=== PATIENT | female | born 1955 | race African-American/Black ===

== ENCOUNTER 2020-07-06 17:15 | Inpatient (IN) | payer MEDICARE, MEDICAID ==
[2020-07-06 18:36] LABS: #Basophils 0.1 thou/uL (0.0-0.2); #Eosinphils 0.5 thou/uL (0.0-0.7); #Lymphocytes 2.3 thou/uL (1.20-3.40); #Monocytes 0.7 thou/uL (0.11-0.59); %Basophils 1.3 % (0.0-1.0); %Eosinophils 4.4 % (0.0-10.0); %Lymphocytes 21.7 % (21.0-51.0); %Monocytes 6.7 % (0.0-10.0); Hemoglobin 7.8 g/dL (12.0-16.0); Mean Corpuscular HGB CONC 32.9 g/dL (32.0-36.0); Mean Platelet Volume 8.7 fL (7.4-10.4); Platelet Count 279 thou/uL (130-400); RBC Distribution Width 16.5 % (11.5-14.5); Red Blood Cell (RBC) Count 2.98 mill/uL (4.20-5.40); White Blood Cell (WBC) Count 10.5 thou/uL (4.8-10.8)
[2020-07-06 19:06] LABS: ALT (SGPT) 29 U/L (8-55); AST (SGOT) 24 U/L (5-34); Albumin 3.1 g/dL (3.4-4.8); Alkaline Phosphatase 185 U/L (40-110); Anion Gap 14 mmol/L (10-20); BUN (Urea Nitrogen) 70 mg/dL (9.8-20.1); Bilirubin, Total 0.4 mg/dL (0.2-1.2); Calc. Creatinine Clearance 0 mL/min (70-130); Carbon Dioxide 22 mmol/L (23-31); Chloride 108 mmol/L (98-107); Globulin 5.5 g/dL (2.4-3.5); Glucose 81 mg/dL (80-115); Potassium 4.6 mmol/L (3.5-5.1); Protein, Total 8.6 g/dL (5.8-8.1); Sodium 139 mmol/L (136-145)
[2020-07-06] MEDS ORDERED: Vancomycin 1 GM/200 ML BAG ONE (20:40)
[2020-07-06] MEDS ORDERED: Cefepime 2 GM VIAL ONE (20:40)
[2020-07-06 20:46] LABS: Bacteria/HPF 4+ HPF (None Seen); Bilirubin Negative (Negative); Blood, Urine 1+ (Negative); Clarity Extra Turbid (Clear); Glucose, Urine (Dipstick) Normal (Negative); Ketone, Urine Negative (Negative); Leukocyte 500 Leu/uL (Negative); Nitrite Negative (Negative); Protein, Urine (Dipstick) 100 mg/dL (Neg-Trace); RBC/HPF 21-50 HPF (0-3); Specific Gravity, Urine 1.011 (1.002-1.036); Urobilinogen Normal mg/dL (Less than 2); WBC/HPF Greater than 50 HPF (0-3); pH, Urine 6.5 (5.0-9.0)
[2020-07-06] MEDS ORDERED: Ondansetron PF 4 MG/2 ML Vial IVP PRN (21:42)
[2020-07-06] MEDS ORDERED: Promethazine HCl 12.5 MG in Sodium Chloride 0.9% 50 ML IVPB PRN (21:42)
[2020-07-06] MEDS ORDERED: hydrALAZINE 20 MG/ML VIAL SLOW IVP PRN (21:42)
[2020-07-06] MEDS ORDERED: Guaifenesin DM 100-10/5 ML UDCUP PO PRN (21:42)
[2020-07-06] MEDS ORDERED: Acetaminophen 325 MG TAB PO PRN (21:42)
[2020-07-06] MEDS ORDERED: cloNIDine 0.1 MG TAB PO PRN (21:42)
[2020-07-06] MEDS ORDERED: Labetalol HCl 100 MG/20 ML VIAL SLOW IVP PRN (21:42)
[2020-07-06] MEDS ORDERED: Electrolyte Replacement Protocol 1 EACH FS PRN (21:45)
--- NOTE | 2020-07-06 21:48 | PDOC.HHP ---
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 Patient has home health nurse, who called and reported that wounds had grown to size of hand and are tunneling. Patient reports wound have been there since 2018 and [employer] is treating with silver solution and she thinks it has not helped. Wound have become malodorous, painful compared to baseline. She also has a leave in shah catheter, urine was cloudy and sent for UA which revealed UTI signs, was changed a week ago. In ED, vitals afebrile, hemodynamically stable, patient talkative and in no distress. Blood and urine cultures sent, patient given vancomycin and cefepime and to be admitted for further workup and care. Allergies/Adverse Reactions: Allergy/AdvReac Type Severity Reaction Status Date / Time No Known Allergies Allergy Verified 02/26/13 10:29 Home Medications: Medication Instructions Recorded Confirmed Type Diclofenac Sodium ER 100 mg PO DAILY 02/26/13 03/19/13 History Iron 325 mg PO DAILY 02/26/13 03/19/13 History Lasix 20 mg PO BID 02/26/13 03/19/13 History Potassium 10 meq PO DAILY 02/26/13 03/19/13 History Simvastatin 20 mg PO DAILY 02/26/13 03/19/13 History Fluconazole [Diflucan] 150 mg PO DAILY #0 tab 03/19/13 Rx HYDROcodone Bit/APAP 5/325 [[place]] 1 tab PO Q6H PRN #0 tab 03/19/13 Rx Lidocaine 2% [Xylocaine 2% Jelly] 1 applic TOP ASDIR PRN #0 tube 03/19/13 Rx Past History: PMH: HTN, 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 gastric sleve,R THIGH SKIN GRAFT TO R LOWER LEG, gallbladder removal. Family history: Notes: denies gall bladder/.stones in family. Social history: Patient denies alcohol use, Patient denies drug use, Patient has no smoking history. Hospitalist TOMÁS MOSLEY Constitutional: reports: weakness. denies: fever, chills, sweats, malaise, other Eyes: denies: pain, vision change, conjunctivae inflammation, eyelid inflammation, redness, other ENT: denies: ear pain, ear discharge, nose pain, nose discharge, nose congestion, mouth pain, mouth swelling, throat pain, throat swelling, other Respiratory: denies: cough, dry, shortness of breath, hemoptysis, SOB with excertion, pleuritic pain, sputum, wheezing, other Cardiovascular: denies: chest pain, palpitations, orthopnea, paroxysmal noc. dyspnea, edema, light headedness, other Gastrointestinal: denies: nausea, vomiting, abdominal pain, diarrhea, constipation, melena, hematochezia, other Genitourinary: denies: dysuria, frequency, incontinence, hematuria, retention, other Musculoskeletal: denies: neck pain, shoulder pain, arm pain, back pain, hand pain, leg pain, foot pain, other Skin: reports: rash, lesions, other (sacral ulcers). denies: cristian, bruising Neurological: denies: weakness, numbness, incoordination, change in speech, confusion, seizures, other All other systems reviewed; all pertinent +/- noted in HPI/Subj Hospitalist Exam Vitals: VITAL SIGNS Wed Jul 06, 2020 22:00 KASSIDY Shelton Klara BP: 126/65 MAP: 85 Pulse: 76 Resp: 15 Temp: 97.9 (Oral) Pain: 0 O2 sat: 99 on (Room Air) Time: 07/06/2020 22:00. General Appearance: NAD, awake alert Eye: PERRL, anicteric sclera ENT: normocephalic atraumatic, no oropharyngeal lesions, moist mucosa Neck: supple, symmetric, no JVD, no thyromegaly, no lymphadenopathy, no carotid bruit Heart: RRR, no murmur, no gallops, no rubs, normal peripheral pulses Respiratory: CTAB, no wheezes, no rales, no ronchi, normal chest expansion, no tachypnea, normal percussion Gastrointestinal: soft, non-tender, non-distended, normal bowel sounds, no palpable masses, no hepatomegaly, no splenomegaly, no bruit Extremities: no cyanosis, no clubbing, no edema Skin: normal turgor Skin - other findings: see below under labs section for description, will not fit Neurological: cranial nerve grossly intact, normal sensation to touch, no weakness, no focal deficits, no new deficit Musculoskeletal: normal tone, normal strength, no muscle wasting Psychiatric: normal affect, normal behavior, A&O x 3 Hospitalist Results Result Diagrams: 07/06/20 18:24 07/06/20 18:24 Lab results: Laboratory Last Values WBC 10.5 thou/uL (4.8-10.8) 07/06/20 18:24 RBC 2.98 mill/uL (4.20-5.40) L 07/06/20 18:24 Hgb 7.8 g/dL (12.0-16.0) L 07/06/20 18:24 Hct 23.6 % (36.0-47.0) L 07/06/20 18:24 MCV 79.0 fL (78.0-98.0) 07/06/20 18: MCH 26.0 pg (27.0-31.0) L 07/06/20 18: MCHC 32.9 g/dL (32.0-36.0) 07/06/20 18: RDW 16.5 % (11.5-14.5) H 07/06/20 18: Plt Count 279 thou/uL (130-400) 07/06/20 18:24 MPV 8.7 fL (7.4-10.4) 07/06/20 18: Neutrophils % 66.0 % (42.0-75.0) 07/06/20 18: Lymphocytes % 21.7 % (21.0-51.0) 07/06/20 18: Monocytes % 6.7 % (0.0-10.0) 07/06/20 18: Eosinophils % 4.4 % (0.0-10.0) 07/06/20 18:24 Basophils % 1.3 % (0.0-1.0) H 07/06/20 18:24 Neutrophils # 7.0 thou/uL (1.40-6.50) H 07/06/20 18:24 Lymphocytes # 2.3 thou/uL (1.20-3.40) 07/06/20 18:24 Monocytes # 0.7 thou/uL (0.11-0.59) H 07/06/20 18:24 Eosinophils # 0.5 thou/uL (0.0-0.7) 07/06/20 18:24 Basophils # 0.1 thou/uL (0.0-0.2) 07/06/20 18:24 Sodium 139 mmol/L (136-145) 07/06/20 18:24 Potassium 4.6 mmol/L (3.5-5.1) 07/06/20 18:24 Chloride 108 mmol/L (98-107) H 07/06/20 18:24 Carbon Dioxide 22 mmol/L (23-31) L 07/06/20 18:24 Anion Gap 14 mmol/L (10-20) 07/06/20 18:24 BUN 70 mg/dL (9.8-20.1) H 07/06/20 18:24 Creatinine 2.68 mg/dL (0.6-1.1) H 07/06/20 18:24 Estimated GFR (MDRD) 22 07/06/20 18:24 Glucose 81 mg/dL (80-115) 07/06/20 18:24 Lactic Acid 0.7 mmol/L (0.5-2.2) 07/06/20 18:24 Calcium 9.0 mg/dL (7.8-10.44) 07/06/20 18:24 Total Bilirubin 0.4 mg/dL (0.2-1.2) 07/06/20 18:24 AST 24 U/L (5-34) 07/06/20 18:24 ALT 29 U/L (8-55) 07/06/20 18:24 Alkaline Phosphatase 185 U/L (40-110) H 07/06/20 18:24 Serum Total Protein 8.6 g/dL (5.8-8.1) H 07/06/20 18:24 Albumin 3.1 g/dL (3.4-4.8) L 07/06/20 18:24 Globulin 5.5 g/dL (2.4-3.5) H 07/06/20 18:24 Albumin/Globulin Ratio 0.6 g/dL (1.2-2.2) L 07/06/20 18:24 Urine Color Yellow (Yellow) 07/06/20 20: Urine Clarity Extra Turbid (Clear) A 07/06/20 20: Urine pH 6.5 (5.0-9.0) 07/06/20 20: Ur Specific [place] 1.011 (1.002-1.036) 07/06/20 20: Urine Protein 100 mg/dL (Neg-Trace) A 07/06/20 20: Urine Glucose (UA) Normal mg/dL (Negative) 07/06/20 20: Urine Ketones Negative mg/dL (Negative) 07/06/20 20: Urine Blood 1+ (Negative) A 07/06/20: Urine Nitrite Negative (Negative) 07/06/20: Urine Bilirubin Negative (Negative) 07/06/20: Urine Urobilinogen Normal mg/dL (Less than 2) 07/06/20 20: Ur Leukocyte Esterase 500 [place]/uL (Negative) A 07/06/20: Urine RBC 21-50 HPF (0-3) A 07/06/20: Urine WBC Greater than 50 HPF (0-3) A 07/06/20: Ur Squamous Epith Cells 4-6 HPF (0-3) A 07/06/20: Urine Bacteria 4+ HPF (None Seen) A 07/06/20 20: Additional comment: SKIN EXAM Skin assessment findings include skin warm Skin dry Inspection findings include pressure ulcer to the sacrum Stage II length (cm) 4 width (cm) 2 without drainage Inspection findings include pressure ulcer to left buttocks Stage III length (cm) 9 width (cm) 11 draining clear fluid Inspection findings include pressure ulcer Stage II multiple dot like ulcers on left upper thigh posterior Notes: bilateral upper thigh/groin streak like skin break down approx. 4 cm in length. 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 # UTI # cellulitis and infected pressure ulcer Patient has home health nurse, who called and reported that wounds had grown to size of hand and are tunneling. Patient reports wound have been there since 2018 and company is treating with silver solution and she thinks it has not helped. Wound have become malodorous, painful compared to baseline.. suspect ulcer infection and possibly related to leaky shah, exchanged in ED, not obvi ously tunneling and no indication currently for surgical consultation but will await wound care service evaluation for further opinion. She also has a leave in shah catheter, urine was cloudy and sent for UA which revealed UTI signs, was changed a week ago. In ED, vitals afebrile, hemodynamically stable, patient talkative and in no distress. Blood and urine cultures sent, patient given vancomycin and cefepime and to be admitted for further workup and care. - shah changed a week ago and again in ED - start empiric vancomycin/zosyn - follow cultures - consult wound care nursing # HTN - start PRN medications, resume home meds as appropriate # anemia - no clinical bleeding, continue DVT ppx heparin and monitor CBC and monitor for bleeding # paraplegia - noted, PT/OT to ensure stable for returning home w/ HH DVT/GI ppx
[2020-07-06] MEDS ORDERED: Piperacillin/Tazobactam 3.375 GM in Sodium Chloride 0.9% 100 ML IVPB SCH (22:15)
[2020-07-07 01:03] VITALS: BMI 52.7
[2020-07-07] MEDS: Sodium Chloride 0.9% 1,000 ML IV SCH ×2 (01:23→12:14)
[2020-07-07] MEDS ORDERED: Vancomycin 1 GM in Premix Bag 1 BAG IVPB SCH (03:00)
[2020-07-07] MEDS: Piperacillin/Tazobactam 3.375 GM in Sodium Chloride 0.9% 100 ML IVPB SCH ×3 (05:37→17:26)
[2020-07-07 06:11] LABS: #Basophils 0.1 thou/uL (0.0-0.2); #Eosinphils 0.4 thou/uL (0.0-0.7); #Lymphocytes 1.9 thou/uL (1.20-3.40); #Monocytes 0.7 thou/uL (0.11-0.59); #Neutrophils 6.4 thou/uL (1.40-6.50); %Eosinophils 4.3 % (0.0-10.0); %Monocytes 7.7 % (0.0-10.0); Mean Corpuscular HGB CONC 31.4 g/dL (32.0-36.0); Mean Corpuscular Hemoglobin 24.9 pg (27.0-31.0); Mean Corpuscular Volume 79.3 fL (78.0-98.0); Mean Platelet Volume 8.7 fL (7.4-10.4); Platelet Count 260 thou/uL (130-400); RBC Distribution Width 16.4 % (11.5-14.5); Red Blood Cell (RBC) Count 2.82 mill/uL (4.20-5.40); White Blood Cell (WBC) Count 9.6 thou/uL (4.8-10.8)
[2020-07-07 06:30] LABS: Anion Gap 14 mmol/L (10-20); BUN (Urea Nitrogen) 62 mg/dL (9.8-20.1); Calc. Creatinine Clearance 56 mL/min (70-130); Calcium 8.6 mg/dL (7.8-10.44); Carbon Dioxide 19 mmol/L (23-31); Chloride 113 mmol/L (98-107); Glucose 86 mg/dL (80-115); Magnesium 2.2 mg/dL (1.6-2.6); Phosphorus 4.4 mg/dL (2.3-4.7); Potassium 4.6 mmol/L (3.5-5.1); Sodium 141 mmol/L (136-145)
[2020-07-07] MEDS ORDERED: Diclofenac Sodium 50 MG DR TAB PO SCH ×2 (09:00→21:00)
[2020-07-07] MEDS ORDERED: FLU VACC QS2020-21(6MOS UP)/PF 60 MCG/0.5 ML SYRINGE IM ONE (09:00)
[2020-07-07] MEDS: Famotidine 20 MG TAB PO SCH ×2 (09:37→20:33)
[2020-07-07] MEDS: Fluconazole 100 MG TAB PO SCH (09:38)
[2020-07-07] MEDS: Heparin 5,000 UNITS/ML VIAL SC SCH ×2 (09:39→20:41)
[2020-07-07] MEDS: Polyethylene Glycol 3350 17 GM Packet PO SCH (09:40)
[2020-07-07] MEDS: HYDROcodone/Acetaminophen 5/325 mg Tablet PO PRN ×3 (09:43→21:50)
--- NOTE | 2020-07-07 12:26 | PDOC.HOSPP ---
- Subjective Encounter Date: 07/07/20 Encounter Time: 11:00 Subjective: Mrs. Moreno was seen and reports that she was not able to sleep due to her ulcers. She reports strong appetite with regular bowel movements and urination. She has a PMHx of hypertension, cholecystectomy, gastric sleeve, and T10-T12 paraplegia. She denies vomiting, chest pain, SOB, headache. She is positive for nausea, upper respiratory congestion with clear mucus, and noticeable neuropathy upon Left LE palpation. She also states that she stopped taking daily iron pills in February 2020 which may impact her hemoglobin. - Objective Vital Signs & Weight: Vital Signs (12 hours) Temp Pulse Resp BP Pulse Ox 07/07/20 08:14 97.9 F 66 18 118/67 97 07/07/20 08:00 97 07/07/20 04:00 97.7 F 82 20 137/83 98 07/07/20 01:56 96 Weight Weight 327 lb I&O: 07/06/20 07/07/20 07/08/20 06:59 06:59 06:59 Intake Total 600 240 Output Total 900 Balance -300 240 Result Diagrams: 07/07/20 05:40 07/07/20 05:40 Hospitalist ROS - Review of Systems Eyes: denies: conjunctivae inflammation, eyelid inflammation, redness Respiratory: reports: cough, sputum. denies: shortness of breath, hemoptysis Cardiovascular: denies: chest pain Gastrointestinal: reports: nausea. denies: vomiting, abdominal pain, diarrhea, constipation, hematochezia Genitourinary: reports: dysuria - Medication Medications: Active Medications Generic Name Dose Route Start Last Admin Trade Name Derrickq PRN Reason Stop Dose Admin Hydrocodone Bitart/Acetaminophen 1 tab 07/06/20 21:44 07/07/20 09:43 Hydrocodone/Acetaminophen 5/325 Mg Tablet PO 1 tab Q6H PRN Administration Moderate to Severe Pain (6-10) Diclofenac Sodium 100 mg 07/07/20 09:00 07/07/20 09:37 Diclofenac Sodium [address] Tab PO 100 mg DAILY KAREN Administration Famotidine 20 mg 07/07/20 09:00 07/07/20 09:37 Famotidine 20 Mg Tab PO 20 mg BID KAREN Administration Fluconazole 150 mg 07/07/20 09:00 07/07/20 09:38 Fluconazole 100 Mg Tab PO 150 mg DAILY KAREN Administration Heparin Sodium (Porcine) 5,000 units 07/07/20 09:00 07/07/20 09:39 Heparin 5,000 Units/Ml Vial SC 5,000 units BID KAREN Administration Sodium Chloride 1,000 mls @ 75 mls/hr 07/06/20 21:45 07/07/20 12:14 Normal Saline 0.9% IV 1,000 mls .[id number] KAREN Administration Piperacillin Sod/Tazobactam 100 mls @ 200 mls/hr 07/07/20 06:00 07/07/20 12:12 Sod 3.375 gm/ Sodium Chloride IVPB 100 mls Q6HR KAREN Administration Polyethylene Glycol 17 gm 07/07/20 09:00 07/07/20 09:40 Polyethylene Glycol 3350 17 Gm Packet PO 17 gm DAILY KAREN Administration Hospitalist Exam Vitals: Vital Signs (12 hours) Temp Pulse Resp BP Pulse Ox 07/07/20 08:14 97.9 F 66 18 118/67 97 07/07/20 08:00 97 07/07/20 04:00 97.7 F 82 20 137/83 98 07/07/20 01:56 96 Weight Weight 327 lb General Appearance: NAD, awake alert Eye: PERRL, anicteric sclera ENT: normocephalic atraumatic Neck: supple Heart: RRR, no murmur Respiratory: CTAB Gastrointestinal: soft, non-tender, non-distended, normal bowel sounds Extremities: 1+ LE edema, 2+ LE edema Neurological: cranial nerve grossly intact, no new deficit Neurological - other findings: peripheral neuropathy in left lower extremety upon palpation Musculoskeletal: generalized weakness Psychiatric: normal affect, normal behavior, A&O x 3 Hosp A/P - Plan Hospitalist H&P A/P Plan: Patient is a 64 year old female with PMH HTN, 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 Cellulitis with decubitus ulcers----present on admission # UTI Complicated urinary tract infection Chronic indwelling Shah cath UTI secondary to chronic indwelling Shah catheter # cellulitis and infected pressure ulcer -Colonization cannot be ruled out given the chronic use of the Shah Patient has home health nurse, who called and reported that wounds had grown to size of hand and are tunneling. Patient reports wound have been there since 2018 a --Wound have become malodorous, painful compared to baseline.. -- suspect ulcer infection and possibly related to leaky shah, exchanged in ED, not obviously tunneling and no indication currently for surgical consultation --await wound care service evaluation for further opinion. -Shah change a week ago. - start empiric vancomycin/zosyn - follow cultures - consulted wound care nursing # HTN - start PRN medications, resume home meds as appropriate #Chronic normocytic anemia - no clinical bleeding, continue DVT ppx heparin and monitor CBC and monitor for bleeding -During the last February she stopped her iron supplement. -Since the hemoglobin is at 7 will transfuse 1 unit packed RBCs # paraplegia - noted, PT/OT to ensure stable for returning home w/ HH Acute kidney injury and her last baseline creatinine is 1.48 in May 2020 -IV fluid and repeat the panel if not resolving then will order renal ultrasound. Chronic pain Patient demands she needs to get her Voltaren and once a day is not helping she likes to resume her home regimen. I am going to hold that medicine and give her [place] as needed until her kidney function improves. Covid positive -She is asymptomatic, however given her comorbidities we will give her empiric treatment Care discussed with the student and agree with the above plan.
[2020-07-07 12:36] LABS: SARS-CoV-2 PCR by NAA DETECTED (NotDetected)
[2020-07-07] MEDS ORDERED: Sodium Chloride 0.9% 1,000 ML IV SCH (15:01)
[2020-07-07] MEDS ORDERED: Melatonin 3 MG TAB PO PRN (15:04)
[2020-07-07] MEDS: Baclofen 10 MG TAB PO PRN ×2 (15:44→21:50)
[2020-07-07] MEDS ORDERED: Dexamethasone 4 mg/ml Vial SLOW IVP SCH (16:00)
[2020-07-07] MEDS ORDERED: Zinc Sulfate 220 MG CAP PO SCH (16:00)
[2020-07-07] MEDS ORDERED: Simvastatin 20 MG TAB PO SCH (21:00)
[2020-07-07] MEDS ORDERED: Vancomycin 1.5 GRAM/300 ML BAG 1.5 GM in Premix Bag 1 BAG IVPB SCH (22:00)
[2020-07-08] MEDS: Vancomycin 1.5 GRAM/300 ML BAG 1.5 GM in Premix Bag 1 BAG IVPB SCH ×2 (00:15→23:33)
[2020-07-08] MEDS: Piperacillin/Tazobactam 3.375 GM in Sodium Chloride 0.9% 100 ML IVPB SCH ×5 (01:57→20:10)
[2020-07-08] MEDS: Baclofen 10 MG TAB PO PRN ×3 (04:14→16:35)
[2020-07-08 07:12] LABS: #Lymphocytes 1.7 thou/uL (1.20-3.40); #Monocytes 0.2 thou/uL (0.11-0.59); #Neutrophils 7.5 thou/uL (1.40-6.50); %Basophils 0.4 % (0.0-1.0); %Eosinophils 0.3 % (0.0-10.0); %Lymphocytes 17.9 % (21.0-51.0); %Monocytes 2.3 % (0.0-10.0); %Neutrophils 79.1 % (42.0-75.0); Hemoglobin 8.4 g/dL (12.0-16.0); Mean Corpuscular HGB CONC 32.1 g/dL (32.0-36.0); Mean Corpuscular Hemoglobin 26.1 pg (27.0-31.0); Mean Corpuscular Volume 81.4 fL (78.0-98.0); Mean Platelet Volume 8.7 fL (7.4-10.4); Platelet Count 266 thou/uL (130-400); RBC Distribution Width 16.7 % (11.5-14.5); Red Blood Cell (RBC) Count 3.22 mill/uL (4.20-5.40); White Blood Cell (WBC) Count 9.4 thou/uL (4.8-10.8)
[2020-07-08 07:31] LABS: Anion Gap 13 mmol/L (10-20); BUN (Urea Nitrogen) 43 mg/dL (9.8-20.1); Calc. Creatinine Clearance 62 mL/min (70-130); Calcium 8.7 mg/dL (7.8-10.44); Carbon Dioxide 18 mmol/L (23-31); Chloride 110 mmol/L (98-107); Glucose 198 mg/dL (80-115); Magnesium 2.1 mg/dL (1.6-2.6); Potassium 5.1 mmol/L (3.5-5.1); Sodium 136 mmol/L (136-145)
[2020-07-08] MEDS: Torsemide 20 MG TAB PO SCH (09:57)
[2020-07-08] MEDS: Fluconazole 100 MG TAB PO SCH (09:57)
[2020-07-08] MEDS: Potassium Chloride 10 MEQ TAB PO SCH (09:58)
[2020-07-08] MEDS: Calcium Carbonate 600 MG + Vit D TAB PO SCH (09:58)
[2020-07-08] MEDS: Ascorbic Acid 500 mg Chewable Tablet PO SCH (09:58)
[2020-07-08] MEDS: Heparin 5,000 UNITS/ML VIAL SC SCH ×2 (09:58→20:09)
[2020-07-08] MEDS: Zinc Sulfate 220 MG CAP PO SCH (09:58)
[2020-07-08] MEDS: HYDROcodone/Acetaminophen 5/325 mg Tablet PO PRN ×2 (09:58→16:34)
[2020-07-08] MEDS: Famotidine 20 MG TAB PO SCH ×2 (09:58→20:09)
[2020-07-08] MEDS: Polyethylene Glycol 3350 17 GM Packet PO SCH (09:59)
[2020-07-08] MEDS: Dexamethasone 4 mg/ml Vial SLOW IVP SCH (09:59)
--- NOTE | 2020-07-08 14:38 | PDOC.HOSPP ---
- Subjective Encounter Date: 07/08/20 Encounter Time: 11:50 Subjective: Patient seen this morning she does not have any acute complaints. [place]; she does not have currently any urologist following. Urine culture mixed cholo. - Objective Vital Signs & Weight: Vital Signs (12 hours) Temp Pulse Resp BP Pulse Ox 07/08/20 08:00 98 07/08/20 07:58 98.2 F 72 20 131/60 98 07/08/20 04:43 98.4 F 76 20 146/83 H Weight Admit Weight 327 lb Weight 327 lb I&O: 07/07/20 07/08/20 07/09/20 06:59 06:59 06:59 Intake Total 600 1310 120 Output Total 900 2250 Balance -300 -940 120 Result Diagrams: 07/08/20 06:43 07/08/20 06:43 Hospitalist ROS - Medication Medications: Active Medications Generic Name Dose Route Start Last Admin Trade Name Freq PRN Reason Stop Dose Admin Hydrocodone Bitart/Acetaminophen 1 tab 07/06/20 21:44 07/08/20 09:58 Hydrocodone/Acetaminophen 5/325 Mg Tablet PO 1 tab Q6H PRN Administration Moderate to Severe Pain (6-10) Ascorbic Acid 1,000 mg 07/08/20 09:00 07/08/20 09:58 Ascorbic Acid 500 Mg Chewable Tablet PO 1,000 mg DAILY KAREN Administration Baclofen 20 mg 07/07/20 15:33 07/08/20 09:58 Baclofen 10 Mg Tab PO 20 mg Q6H PRN Administration muscle Calcium/Vitamin D 1 tab 07/08/20 09:00 07/08/20 09:58 Calcium Carbonate 600 Mg + Vit D Tab PO 1 tab DAILY KAREN Administration Dexamethasone 6 mg 07/08/20 09:00 07/08/20 09:59 Dexamethasone 4 Mg/Ml Vial SLOW IVP 6 mg DAILY KAREN Administration Famotidine 20 mg 07/07/20 09:00 07/08/20 09:58 Famotidine 20 Mg Tab PO 20 mg BID KAREN Administration Fluconazole 150 mg 07/07/20 09:00 07/08/20 09:57 Fluconazole 100 Mg Tab PO 150 mg DAILY KAREN Administration Heparin Sodium (Porcine) 5,000 units 07/07/20 09:00 07/08/20 09:58 Heparin 5,000 Units/Ml Vial SC 5,000 units BID KAREN Administration Vancomycin HCl 1.5 gm/ Device 300 mls @ 200 mls/hr 07/07/20 23:59 07/08/20 00:15 IVPB 07/14/20 00:30 300 mls 2359 KAREN Administration Piperacillin Sod/Tazobactam 100 mls @ 200 mls/hr 07/08/20 02:00 07/08/20 10:00 Sod 3.375 gm/ Sodium Chloride IVPB 100 mls 0200,0800,1400,2000 KAREN Administration Polyethylene Glycol 17 gm 07/07/20 09:00 07/08/20 09:59 Polyethylene Glycol 3350 17 Gm Packet PO 17 gm DAILY KAREN Administration Potassium Chloride 10 meq 07/08/20 09:00 07/08/20 09:58 Potassium Chloride 10 Meq Tab PO 10 meq Q2DAYS KAREN Administration Simvastatin 20 mg 07/07/20 21:00 07/07/20 20:33 Simvastatin 20 Mg Tab PO 20 mg HS KAREN Administration Torsemide 20 mg 07/08/20 09:00 07/08/20 09:57 Torsemide 20 Mg Tab PO 20 mg Q2DAYS KAREN Administration Zinc Sulfate 220 mg 07/08/20 09:00 07/08/20 09:58 Zinc Sulfate 220 Mg Cap PO 220 mg DAILY KAREN Administration Hospitalist Exam Vitals: Vital Signs (12 hours) Temp Pulse Resp BP Pulse Ox 07/08/20 08:00 98 07/08/20 07:58 98.2 F 72 20 131/60 98 07/08/20 04:43 98.4 F 76 20 146/83 H Weight Admit Weight 327 lb Weight 327 lb General Appearance: NAD, awake alert Eye: PERRL ENT: normocephalic atraumatic Neck: supple Heart: RRR, normal peripheral pulses Respiratory: CTAB, normal chest expansion Gastrointestinal: soft, normal bowel sounds Neurological: cranial nerve grossly intact, no focal deficits Psychiatric: normal affect, normal behavior, A&O x 3 Hosp A/P - Plan Hospitalist H&P A/P Plan: Patient is a 64 year old female with PMH HTN, 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 Cellulitis with decubitus ulcers----present on admission # UTI Complicated urinary tract infection Chronic indwelling Shah cath UTI secondary to chronic indwelling Shah catheter # cellulitis and infected pressure ulcer -Colonization cannot be ruled out given the chronic use of the Shah Patient has home health nurse, who called and reported that wounds had grown to size of hand and are tunneling. Patient reports wound have been there since 2018 a --Wound have become malodorous, painful compared to baseline.. Sacral wound present on admission -- suspect ulcer infection and possibly related to leaky shah, exchanged in ED, not obviously tunneling and no indication currently for surgical consultation --await wound care service evaluation for further opinion. -Shah change a week ago. - start empiric vancomycin/zosyn - follow cultures - consulted wound care nursing # HTN - start PRN medications, resume home meds as appropriate #Chronic normocytic anemia - no clinical bleeding, continue DVT ppx heparin and monitor CBC and monitor for bleeding -During the last February she stopped her iron supplement. -Since the hemoglobin is at 7 will transfuse 1 unit packed RBCs--------------> latest hemoglobin 8.4 #T10 12 paraplegia - noted, PT/OT to ensure stable for returning home w/ HH Acute kidney injury and her last baseline creatinine is 1.48 in May 2020 -Slight improvement in the creatinine level. We will get ultrasound Chronic pain Patient demands she needs to get her Voltaren and once a day is not helping she likes to resume her home regimen. I am going to hold that medicine and give her [place] as needed until her kidney function improves. Covid positive -She is asymptomatic, however given her comorbidities we will give her empiric treatment Follow-up on renal ultrasound Chronic indwelling Shah Possible neurogenic bladder secondary to paraplegia -Home health provider changes her Shah once a month. -Now recently when she is admitted in the ER they have changed the Shah as it was leaking. I do not think emergently she needs any urology inpatient visit -May need to connect with the urologist for outpatient clinic follow-up intermittently as she is new to the neighborhood.
--- NOTE | 2020-07-08 19:10 | ULT ---
Exam: Bilateral renal ultrasound HISTORY: Acute kidney insufficiency COMPARISON: None FINDINGS: Right kidney: Normal cortical echotexture. No hydronephrosis. There is right renal cortical thinning. There is a calcification within the pelvis. Right kidney measurements: 9.2 x 2.7 x 4 point cm. Left kidney: Normal cortical echotexture. No hydronephrosis. There is left renal cortical thinning. Left kidney measurements 10.5 x 6.1 x 5.0 cm. Urinary bladder: Not visualized IMPRESSION: 1. No hydronephrosis 2. Nonobstructing calculus in the right kidney 3. Severe bilateral renal cortical thinning.
[2020-07-08] MEDS: Simvastatin 10 MG TAB PO SCH (20:12)
[2020-07-08 23:42] LABS: Vancomycin, Trough 16.7 ug/mL
[2020-07-09] MEDS: HYDROcodone/Acetaminophen 5/325 mg Tablet PO PRN ×3 (01:15→17:27)
[2020-07-09] MEDS: Baclofen 10 MG TAB PO PRN ×3 (01:17→17:27)
[2020-07-09] MEDS: Piperacillin/Tazobactam 3.375 GM in Sodium Chloride 0.9% 100 ML IVPB SCH ×3 (01:50→15:18)
[2020-07-09 06:43] LABS: #Basophils 0.1 thou/uL (0.0-0.2); #Lymphocytes 2.3 thou/uL (1.20-3.40); #Neutrophils 8.8 thou/uL (1.40-6.50); %Basophils 0.6 % (0.0-1.0); %Eosinophils 0.1 % (0.0-10.0); %Lymphocytes 18.8 % (21.0-51.0); %Monocytes 8.2 % (0.0-10.0); %Neutrophils 72.3 % (42.0-75.0); Hemoglobin 8.3 g/dL (12.0-16.0); Mean Corpuscular HGB CONC 32.4 g/dL (32.0-36.0); Mean Corpuscular Hemoglobin 25.7 pg (27.0-31.0); Mean Corpuscular Volume 79.3 fL (78.0-98.0); Mean Platelet Volume 8.8 fL (7.4-10.4); Platelet Count 330 thou/uL (130-400); RBC Distribution Width 16.8 % (11.5-14.5); Red Blood Cell (RBC) Count 3.22 mill/uL (4.20-5.40); White Blood Cell (WBC) Count 12.2 thou/uL (4.8-10.8)
[2020-07-09 07:11] LABS: Anion Gap 17 mmol/L (10-20); BUN (Urea Nitrogen) 35 mg/dL (9.8-20.1); Calc. Creatinine Clearance 71 mL/min (70-130); Calcium 8.9 mg/dL (7.8-10.44); Carbon Dioxide 16 mmol/L (23-31); Chloride 112 mmol/L (98-107); Glucose 101 mg/dL (80-115); Potassium 4.9 mmol/L (3.5-5.1); Sodium 140 mmol/L (136-145)
[2020-07-09] MEDS ORDERED: Magnesium 2 GM/50 ML 2 GM in Premix Bag 1 BAG IVPB SCH (08:15)
[2020-07-09] MEDS: Polyethylene Glycol 3350 17 GM Packet PO SCH (09:47)
[2020-07-09] MEDS: Dexamethasone 4 mg/ml Vial SLOW IVP SCH (09:47)
[2020-07-09] MEDS: Calcium Carbonate 600 MG + Vit D TAB PO SCH (09:47)
[2020-07-09] MEDS: Heparin 5,000 UNITS/ML VIAL SC SCH ×2 (09:48→20:48)
[2020-07-09] MEDS: Ascorbic Acid 500 mg Chewable Tablet PO SCH (09:49)
[2020-07-09] MEDS: Zinc Sulfate 220 MG CAP PO SCH (09:50)
[2020-07-09] MEDS: Famotidine 20 MG TAB PO SCH ×2 (09:50→20:48)
[2020-07-09] MEDS: Fluconazole 100 MG TAB PO SCH (09:50)
--- NOTE | 2020-07-09 18:52 | PDOC.HOSPP ---
- Subjective Encounter Date: 07/09/20 Encounter Time: 16:00 Subjective: The patient states she has been paraplegic since 2017, was told reason was a mystery and it was possibly from transverse myelitis UTI - patient states she had shah placed purely to keep her wounds dry, but can urinate on her own. She reports that she always get confused, weak and symptoms improve with antibiotics and then reoccur when antibiotics are stopped. Explained that urine culture was normal and she was surprised. She complains of shah leaking, states that the tube was up-sized in the ER, but her shah is still leaking and she would like to have it removed and have a pure-wick placed instead. SHe does note have a urologist Sacral ulcers - patient states that silver ointment was not helping with wound care at home. No significant discharge noted by the nurse today. COVID - patient denies cough or SOB - Objective Vital Signs & Weight: Vital Signs (12 hours) Pulse Ox 07/09/20 08:00 97 Weight Admit Weight 327 lb Weight 327 lb I&O: 07/08/20 07/09/20 07/10/20 06:59 06:59 06:59 Intake Total 1310 600 480 Output Total 2250 1000 Balance -940 -400 480 Result Diagrams: 07/09/20 06:00 07/09/20 06:00 Hospitalist ROS - Review of Systems Constitutional: denies: fever, chills - Medication Medications: Active Medications Generic Name Dose Route Start Last Admin Trade Name Freq PRN Reason Stop Dose Admin Hydrocodone Bitart/Acetaminophen 1 tab 07/06/20 21:44 07/09/20 17:27 Hydrocodone/Acetaminophen 5/325 Mg Tablet PO 1 tab Q6H PRN Administration Moderate to Severe Pain (6-10) Ascorbic Acid 1,000 mg 07/08/20 09:00 07/09/20 09:49 Ascorbic Acid 500 Mg Chewable Tablet PO 1,000 mg DAILY KAREN Administration Baclofen 20 mg 07/07/20 15:33 07/09/20 17:27 Baclofen 10 Mg Tab PO 20 mg Q6H PRN Administration muscle Calcium/Vitamin D 1 tab 07/08/20 09:00 07/09/20 09:47 Calcium Carbonate 600 Mg + Vit D Tab PO 1 tab DAILY KAREN Administration Famotidine 20 mg 07/07/20 09:00 07/09/20 09:50 Famotidine 20 Mg Tab PO 20 mg BID KAREN Administration Fluconazole 150 mg 07/07/20 09:00 07/09/20 09:50 Fluconazole 100 Mg Tab PO 150 mg DAILY KAREN Administration Heparin Sodium (Porcine) 5,000 units 07/07/20 09:00 07/09/20 09:48 Heparin 5,000 Units/Ml Vial SC 5,000 units BID KAREN Administration Vancomycin HCl 1.5 gm/ Device 300 mls @ 200 mls/hr 07/07/20 23:59 07/08/20 23:33 IVPB 07/14/20 00:30 300 mls 2359 KAREN Administration Piperacillin Sod/Tazobactam 100 mls @ 200 mls/hr 07/08/20 02:00 07/09/20 15:18 Sod 3.375 gm/ Sodium Chloride IVPB 100 mls 0200,0800,1400,2000 KAREN Administration Polyethylene Glycol 17 gm 07/07/20 09:00 07/09/20 09:47 Polyethylene Glycol 3350 17 Gm Packet PO 17 gm DAILY KAREN Administration Potassium Chloride 10 meq 07/08/20 09:00 07/08/20 09:58 Potassium Chloride 10 Meq Tab PO 10 meq Q2DAYS KAREN Administration Simvastatin 20 mg 07/08/20 21:00 07/08/20 20:12 Simvastatin 10 Mg Tab PO 20 mg HS KAREN Administration Sodium Chloride 10 ml 07/09/20 09:00 07/09/20 09:51 Flush - Normal Saline 10 Ml Syringe IVF 10 ml Q12HR KAREN Administration Torsemide 20 mg 07/08/20 09:00 07/08/20 09:57 Torsemide 20 Mg Tab PO 20 mg Q2DAYS KAREN Administration Zinc Sulfate 220 mg 07/08/20 09:00 07/09/20 09:50 Zinc Sulfate 220 Mg Cap PO 220 mg DAILY KAREN Administration Hospitalist Exam Vitals: Vital Signs (12 hours) Pulse Ox 07/09/20 08:00 97 Weight Admit Weight 327 lb Weight 327 lb General Appearance: NAD, awake alert Eye: PERRL, anicteric sclera ENT: normocephalic atraumatic, no oropharyngeal lesions Neck: no JVD Heart: RRR, no murmur, no gallops, no rubs Respiratory: CTAB, no wheezes, no rales, no ronchi Gastrointestinal: soft, non-tender, non-distended, normal bowel sounds, no pa lpable masses Gastrointestinal - other findings: chronic shah catheter Extremities: no cyanosis, no clubbing, no edema Skin: normal turgor, no lesions, no rashes Hosp A/P - Plan Renal US: severe bilateral renal cortical thinning This is a 64 year old female who came to the ER due to increasing pain from her sacral ulcer Sacral ulcers - wound culture was done today. Did not look infected on arrival . Discontinue f luconazole Chronic shah catheter - urine culture showed > 3 organisms. Patient wants shah removed, so will d/c. Switch to purewick. SHe would like a purewick at home - will discontinue vanc and meropenem since no signs of infection DAPHNIE - improving - creatinine was 1.92. Diclofenac and torsemide on hold. Renal US showed severe bilateral renal cortical thinning, but no hydronephrosis History of paraplegia - chronic, declines placement Dispo: monitor improvement off antibiotics and creatinine
[2020-07-09] MEDS: Simvastatin 10 MG TAB PO SCH (20:49)
[2020-07-10] MEDS: Baclofen 10 MG TAB PO PRN ×3 (00:03→12:41)
[2020-07-10] MEDS: HYDROcodone/Acetaminophen 5/325 mg Tablet PO PRN ×3 (00:04→16:21)
[2020-07-10 07:48] LABS: Hemoglobin 9.2 g/dL (12.0-16.0); Mean Corpuscular HGB CONC 31.6 g/dL (32.0-36.0); Mean Corpuscular Hemoglobin 25.9 pg (27.0-31.0); Mean Corpuscular Volume 82.1 fL (78.0-98.0); Mean Platelet Volume 8.5 fL (7.4-10.4); Platelet Count 324 thou/uL (130-400); RBC Distribution Width 17.7 % (11.5-14.5); Red Blood Cell (RBC) Count 3.55 mill/uL (4.20-5.40); White Blood Cell (WBC) Count 10.9 thou/uL (4.8-10.8)
[2020-07-10 07:54] LABS: Anion Gap 14 mmol/L (10-20); BUN (Urea Nitrogen) 30 mg/dL (9.8-20.1); Calc. Creatinine Clearance 75 mL/min (70-130); Carbon Dioxide 19 mmol/L (23-31); Chloride 111 mmol/L (98-107); Glucose 105 mg/dL (80-115); Potassium 4.9 mmol/L (3.5-5.1); Sodium 139 mmol/L (136-145)
[2020-07-10] MEDS: Ascorbic Acid 500 mg Chewable Tablet PO SCH (09:07)
[2020-07-10] MEDS: Famotidine 20 MG TAB PO SCH (09:07)
[2020-07-10] MEDS: Calcium Carbonate 600 MG + Vit D TAB PO SCH (09:07)
[2020-07-10] MEDS: Potassium Chloride 10 MEQ TAB PO SCH (09:07)
[2020-07-10] MEDS: Zinc Sulfate 220 MG CAP PO SCH (09:07)
[2020-07-10] MEDS: Heparin 5,000 UNITS/ML VIAL SC SCH (09:08)
[2020-07-10] MEDS: Torsemide 20 MG TAB PO SCH (09:08)
[2020-07-10] MEDS: Polyethylene Glycol 3350 17 GM Packet PO SCH (09:08)
[2020-07-10 16:42] VITALS: BP 161/79; TEMP 98.2
--- NOTE | 2020-07-10 18:56 | PDOC.DS.DS ---
Provider Date of Admission: 07/06/20 21:51 Date of Discharge: 07/10/20 Admitting Provider: Swetha Ramos MD Primary Care Physician: Jordan Matos MD Course Hospital Course: Discharge Diagnoses: 1. Acute hypoxic respiratory failure secondary to COVID 2. Sacral ulcers 3. Acute kidney Injury 4. History of paraplegia Brief HPI: This 64-year-old female with past medical history of lower extremity paraplegia from possible transverse myelitis who presented to the emergency room with increasing weakness, diarrhea, nausea. She also complained of pacing pain in her sacral ulcers because she was not able to get adequate wound care. Covid test was positive. White blood cell count was normal. Creatinine was 2.68. UA showed turbid urine, 500 leukocyte esterase, greater than 50 WBC. She did have some hypoxia with oxygen saturation in the 80's. She was given dexamethasone and admitted for further workup. Hospital Course: Acute hypoxic respiratory failure from COVID: The patient was given IV dexamethasone until 07/09. She was weaned off oxygen so this was discontinued. The patient denied shortness of breath or cough. She reported positive COVID test one month ago and quarantined for ten days, so she was advised that she was likely not contagious and would continue to test postiive. Malaise/weakness History of chronic shah catheter and recurrent UTI's: the patient was initially treated for a UTI with IV vancoycin and zosyn from 07/07 to 07/09. Urine culture grew a contaminant so antibiotics were discontinued. The patient had improvement in her WBC from 12 to 10 after stopping antibiotics so these were not restarted. She did have shah placed one month ago in order to prevent her sacral ulcers from getting wet, however she requested that it be removed due to excessive amounts of leaking. Shah was removed 07/09. On 07/10, she requested to have it placed back in since she realized she could not get a Purewick on discharge, even though she was aware of this the day prior. Shah was replaced on the day of discharge. Consider outpatient urology follow up. She did ask about antibiotic prophylaxis for UTI. She states she is allergic to nitrofurantoin. Dr. Ureña suggested cipro or bactrim, but she states those stopped working for her as well, so she decided to f/u with her PCP and ask about this. Acute kidney Injury: the patient presented with a creatinine of 2.68. Her di clofenac was held. Renal US showed bilateral renal cortical thinning. Her creatinine improved to 1.8 at the time of discharge. She should get a repeat BMP in a week. Sacral ulcers: the patient was seen by wound care in consultation. She did not have any signs of infection in this area. She was given instructions by wound care on discharge and advised to f/u with wound care as an outpatient. Does have home health at home. Pertinent Studies: Renal US: no hydronephrosis. Nonobstructing calculus in the right kidney. Severe bilateral renal cortical thinning Resuscitation Status: 07/06/20 21:40 Resuscitation Status Routine Resuscitation Status: FULL: Full Resuscitation Lab Results: 07/10/20 07:27 07/10/20 07:27 Abnormal Lab Results - Last 48 hrs 07/09/20 06:00: Chloride 112 H, Carbon Dioxide 16 L, BUN 35 H, Creatinine 1.92 H 07/09/20 06:00: WBC 12.2 H, RBC 3.22 L, Hgb 8.3 L, Hct 25.6 L, MCH 25.7 L, RDW 16.8 H, Lymphocytes % 18.8 L, Neutrophils # 8.8 H, Monocytes # 1.0 H 07/10/20 07:27: Chloride 111 H, Carbon Dioxide 19 L, BUN 30 H, Creatinine 1.81 H 07/10/20 07:27: WBC 10.9 H, RBC 3.55 L, Hgb 9.2 L, Hct 29.2 L, MCH 25.9 L, MCHC 31.6 L, RDW 17.7 H Microbiology - Entire Visit 07/06/20 18:24 Venous blood - Right Arm Blood Culture - Final Coagulase Neg Staphylococcus 07/06/20 18:15 Urine shah catheter Urine Culture - Final Gram Negative Arvind Gram Negative Arvind#2 Beta-hemolytic Streptococcus 07/06/20 18:51 Venous blood - Right Arm Blood Culture - Preliminary NO GROWTH AT 48 HOURS Vitals: Vital Signs (12 hours) Temp Pulse Resp BP Pulse Ox 07/10/20 16:41 98.2 F 67 14 161/79 H 99 07/10/20 08:00 98.1 F 53 L 20 148/67 H 98 Weight Admit Weight 327 lb Weight 327 lb Physical Exam: The patient was seen and examined on the day of discharge. General Appearance: NAD, awake alert Eye: PERRL, anicteric sclera ENT: normocephalic atraumatic, no oropharyngeal lesions Neck: no JVD Respiratory: CTAB, no wheezes, no rales, no ronchi Cardiovascular: RRR, no murmur, no gallops, no rubs Gastrointestinal: soft, non-tender, non-distended, normal bowel sounds Extremities: no cyanosis, no clubbing, no edema Skin: normal turgor, no lesions, no rashes Neurological - other findings: patient is paraplegic in lower extremities Musculoskeletal: normal tone, normal strength, no muscle wasting PSYCH: normal affect, normal behavior, A&O x 3, oriented to person Problem Plan of Treatment: repeat BMP in a week. Continue with outpatient wound care Plan Home Medications: Medication Instructions Recorded Confirmed Type Potassium 10 meq PO ASDIR 02/26/13 07/07/20 History HYDROcodone Bit/APAP 5/325 [[place]] 1 tab PO Q6H PRN #0 tab 03/19/13 07/07/20 Rx Lidocaine 2% [Xylocaine 2% Jelly] 1 applic TOP ASDIR PRN #0 tube 03/19/13 07/07/20 Rx Ascorbic Acid [Vitamin C Chewable 500 mg PO DAILY 07/07/20 07/07/20 History Tablet] Calcium Carb/Vitamin D3/Vit K1 600 mg PO DAILY 07/07/20 07/07/20 History [Calcium + D Soft Chewable Tablet] Torsemide 20 mg PO ASDIR 07/07/20 07/07/20 History Allergies: nitrofurantoin [From Macrobid] Allergy (Verified 07/06/20 23:57) Discharge Instructions:: To follow up with [facility] Activity:: Activity as Tolerated Nourishment:: Heart Healthy Diet Referrals: Jordan Matos MD [Primary Care Provider] - 7 Days Disposition: HOME Quality CORE MEASURES:: N/A
== END 2020-07-10 17:57 | disposition home or self-care (01) | DRG 592 ==
LOC: ERS 17:15 → T4-A 21:51
PROVIDERS: ADMIT Internal Medicine; ATTEND Internal Medicine
PROC: 0T2BX0Z Change Drainage Device in Bladder, External Approach (ICD-10-PCS; principal; 2020-07-06)
DX: L89.159 Pressure ulcer of sacral region, unspecified stage (principal); U07.1 COVID-19; J96.01 Acute respiratory failure with hypoxia; G82.20 Paraplegia, unspecified; N17.9 Acute kidney failure, unspecified; I10 Essential (primary) hypertension; G89.29 Other chronic pain; D64.9 Anemia, unspecified; Z98.51 Tubal ligation status; Z90.49 Acquired absence of other specified parts of digestive tract
CPT/HCPCS: 36415; 36430; 51702; 76770; 80048; 80053; 80202; 81003; 81015; 83605; 83735; 84100; 85025; 85027; 86850; 86900; 86901; 87040; 87086; 87149; 87635; 96365; 96367; J0692; J1100; J1644; J2543; J3370; J3475; J3490; P9016; U0003; U0005

== ENCOUNTER 2023-11-28 16:18 | Inpatient (IN) | payer MEDICARE, MEDICAID ==
[~2023-11-28 16:18] MED LIST: Iopamidol-370 76% 500 ML MDV (1 ML CHARGE) ONE
[2023-11-28 18:14] LABS: #Basophils 0.07 10x3/uL (0.0-0.2); %Basophils 0.5 % (0.0-1.0); %Eosinophils 2.2 % (0.0-10.0); %Lymphocytes 21.5 % (21.0-51.0); %Monocytes 3.8 % (0.0-10.0); %Neutrophils 71.7 % (42.0-75.0); Hematocrit 19.7 % (36.0-47.0); Hemoglobin 5.6 g/dL (12.0-16.0); Mean Corpuscular HGB CONC 28.4 g/dL (32.0-36.0); Mean Corpuscular Volume 77.6 fL (78.0-98.0); Mean Platelet Volume 8.9 fL (7.4-10.4); Platelet Count 423 10x3/uL (130-400); Red Blood Cell (RBC) Count 2.54 mill/uL (4.20-5.40)
[2023-11-28 18:25] LABS: ALT (SGPT) 19 U/L (8-55); AST (SGOT) 23 U/L (5-34); Albumin 2.9 g/dL (3.4-4.8); Alkaline Phosphatase 120 U/L (40-110); Anion Gap 16 mmol/L (10-20); BUN (Urea Nitrogen) 56 mg/dL (9.8-20.1); Bilirubin, Total 0.2 mg/dL (0.2-1.2); Calc. Creatinine Clearance 0 mL/min (70-130); Carbon Dioxide 20 mmol/L (23-31); Chloride 107 mmol/L (98-107); Estimated GFR 21; Globulin 5.8 g/dL (2.4-3.5); Glucose 106 mg/dL (80-115); Protein, Total 8.7 g/dL (5.8-8.1); Sodium 138 mmol/L (136-145)
[2023-11-28] MEDS ORDERED: Piperacillin/Tazobactam 4.5 GM VIAL ONE (18:25)
[2023-11-28] MEDS ORDERED: Ondansetron PF 4 MG/2 ML Vial ONE (18:25)
[2023-11-28] MEDS ORDERED: Morphine 2 MG/ML VIAL ONE (18:25)
[2023-11-28] MEDS ORDERED: Sodium Chloride 0.9% 100 ML ONE (18:25)
[2023-11-28 18:50] LABS: Hypochromia SLIGHT = 6-15 cells (100X) (0-5/hpf); Microcytosis SLIGHT = 6-15 cells (100X) (0-5/hpf); Polychromasia SLIGHT = 2-3 cells (100X) (0-2/hpf); Schistocytes SLIGHT = 2-5 cells (100X) (0-1/hpf); Target Cells SLIGHT = 2-5 cells (100X) (0-1/hpf)
[2023-11-28] MEDS ORDERED: Acetaminophen 325 MG TAB PO PRN (21:21)
[2023-11-28] MEDS ORDERED: Ondansetron PF 4 MG/2 ML Vial IVP PRN (21:21)
[2023-11-28 23:48] LABS: Lactic Acid 0.8 mmol/L (0.5-2.2)
[2023-11-29] MEDS: Vancomycin (BATCH) 2.5 GM in Premix 1 BAG IVPB SCH (00:17)
[2023-11-29] MEDS ORDERED: Cefepime 2 GM VIAL ONE (00:29)
[2023-11-29] MEDS ORDERED: Sodium Chloride 0.9% 100 ML ONE (00:30)
[2023-11-29] MEDS: Cefepime 2 GM in Sodium Chloride 0.9% 100 ML IVPB SCH (00:33)
[2023-11-29] MEDS: Sodium Chloride 0.9% 1,000 ML IV SCH ×3 (00:34→14:13)
[2023-11-29] MEDS ORDERED: Vancomycin Dose by Levels Sliding Scale (Wt 71-99) FS SCH (06:00)
[2023-11-29 06:49] LABS: Anion Gap 14 mmol/L (10-20); BUN (Urea Nitrogen) 49 mg/dL (9.8-20.1); Calc. Creatinine Clearance 32 mL/min (70-130); Carbon Dioxide 20 mmol/L (23-31); Chloride 109 mmol/L (98-107); Estimated GFR 25; Glucose 123 mg/dL (80-115); Potassium 4.8 mmol/L (3.5-5.1); Sodium 138 mmol/L (136-145)
[2023-11-29 06:55] LABS: #Basophils 0.05 10x3/uL (0.0-0.2); %Basophils 0.5 % (0.0-1.0); %Eosinophils 2.1 % (0.0-10.0); %Lymphocytes 18.6 % (21.0-51.0); %Monocytes 5.3 % (0.0-10.0); %Neutrophils 73.1 % (42.0-75.0); Hematocrit 19.6 % (36.0-47.0); Hemoglobin 5.7 g/dL (12.0-16.0); Mean Corpuscular HGB CONC 29.1 g/dL (32.0-36.0); Mean Corpuscular Hemoglobin 23.8 pg (27.0-31.0); Mean Corpuscular Volume 81.7 fL (78.0-98.0); Mean Platelet Volume 8.9 fL (7.4-10.4); Platelet Count 330 10x3/uL (130-400); RBC Distribution Width 20.4 % (11.5-14.5)
[2023-11-29] MEDS ORDERED: Acetaminophen 325 MG TAB ONE (08:00)
[2023-11-29] MEDS ORDERED: Pantoprazole 40 MG VIAL ONE (08:00)
[2023-11-29] MEDS ORDERED: HYDROcodone/Acetaminophen 5/325 mg Tablet PO PRN (08:35)
[2023-11-29] MEDS ORDERED: Morphine 4 MG/ML VIAL SLOW IVP PRN (08:35)
[2023-11-29] MEDS ORDERED: Morphine 2 MG/ML VIAL ONE (10:40)
[2023-11-29] MEDS: Baclofen 10 MG TAB PO SCH (11:08)
[2023-11-29] MEDS: Morphine 2 MG/ML VIAL SLOW IVP SCH (11:08)
[2023-11-29] MEDS: Pantoprazole 40 MG VIAL IVP SCH (11:09)
[2023-11-29] MEDS: Lidocaine 1% (PF) 30 ML VIAL ONE (12:22)
[2023-11-29 13:33] VITALS: BMI 60.2
[2023-11-29] MEDS: Morphine 2 MG/ML VIAL SLOW IVP PRN (16:00)
[2023-11-29 16:06] LABS: Hematocrit 21.9 % (36.0-47.0); Hemoglobin 6.8 g/dL (12.0-16.0)
[2023-11-29] MEDS: HYDROcodone/Acetaminophen 5/325 mg Tablet PO PRN (21:03)
[2023-11-29 21:13] LABS: Hematocrit 22.5 % (36.0-47.0)
[2023-11-29] MEDS ORDERED: Cefepime 1 GM in Sodium Chloride 0.9% 100 ML IVPB SCH (23:00)
[2023-11-29 23:02] LABS: Vancomycin, Trough 19.3 ug/mL
[2023-11-29] MEDS: Cefepime 1 GM in Sodium Chloride 0.9% 100 ML IVPB SCH (23:17)
[2023-11-29] MEDS: Vancomycin HCl 750 MG in Sodium Chloride 0.9% 250 ML 250 ML IVPB SCH (23:54)
[2023-11-30] MEDS: Furosemide 40 MG (4 mL) VIAL SLOW IVP SCH (01:12)
[2023-11-30] MEDS: Baclofen 10 MG TAB PO SCH ×2 (02:00→12:58)
[2023-11-30 08:15] LABS: #Basophils 0.06 10x3/uL (0.0-0.2); %Basophils 0.6 % (0.0-1.0); %Eosinophils 2.6 % (0.0-10.0); %Lymphocytes 15.1 % (21.0-51.0); %Monocytes 4.6 % (0.0-10.0); %Neutrophils 76.8 % (42.0-75.0); Hematocrit 23.3 % (36.0-47.0); Hemoglobin 7.2 g/dL (12.0-16.0); Mean Corpuscular HGB CONC 30.9 g/dL (32.0-36.0); Mean Corpuscular Hemoglobin 24.6 pg (27.0-31.0); Mean Corpuscular Volume 79.5 fL (78.0-98.0); Mean Platelet Volume 8.5 fL (7.4-10.4); Platelet Count 321 10x3/uL (130-400); RBC Distribution Width 19.7 % (11.5-14.5); Red Blood Cell (RBC) Count 2.93 mill/uL (4.20-5.40)
[2023-11-30 08:28] LABS: Anion Gap 11 mmol/L (10-20); BUN (Urea Nitrogen) 39 mg/dL (9.8-20.1); Calc. Creatinine Clearance 76 mL/min (70-130); Calcium 9.1 mg/dL (7.8-10.44); Carbon Dioxide 23 mmol/L (23-31); Chloride 109 mmol/L (98-107); Estimated GFR 27; Glucose 115 mg/dL (80-115); Potassium 4.8 mmol/L (3.5-5.1); Sodium 138 mmol/L (136-145)
[2023-11-30 08:32] LABS: Vancomycin, Random 24.9 ug/mL (See Comment)
[2023-11-30 08:52] VITALS: BMI 60.2
[2023-11-30] MEDS: Torsemide 20 MG TAB PO SCH (09:51)
[2023-11-30] MEDS ORDERED: Bisacodyl 10 MG SUPP PR PRN (15:38)
[2023-12-01 05:32] LABS: Anion Gap 11 mmol/L (10-20); BUN (Urea Nitrogen) 43 mg/dL (9.8-20.1); Calc. Creatinine Clearance 68 mL/min (70-130); Calcium 8.9 mg/dL (7.8-10.44); Carbon Dioxide 23 mmol/L (23-31); Chloride 108 mmol/L (98-107); Estimated GFR 24; Glucose 91 mg/dL (80-115); Potassium 4.5 mmol/L (3.5-5.1); Sodium 137 mmol/L (136-145)
[2023-12-01 05:59] LABS: #Basophils 0.04 10x3/uL (0.0-0.2); %Basophils 0.4 % (0.0-1.0); %Eosinophils 2.6 % (0.0-10.0); %Lymphocytes 16.1 % (21.0-51.0); %Monocytes 5.3 % (0.0-10.0); %Neutrophils 75.3 % (42.0-75.0); Hematocrit 23.3 % (36.0-47.0); Hemoglobin 7.2 g/dL (12.0-16.0); Mean Corpuscular HGB CONC 30.9 g/dL (32.0-36.0); Mean Corpuscular Hemoglobin 24.8 pg (27.0-31.0); Mean Corpuscular Volume 80.3 fL (78.0-98.0); Mean Platelet Volume 8.3 fL (7.4-10.4); Platelet Count 323 10x3/uL (130-400); RBC Distribution Width 20.9 % (11.5-14.5)
[2023-12-01] MEDS: Morphine 4 MG/ML VIAL SLOW IVP PRN (09:07)
[2023-12-02 11:57] VITALS: BP 147/78; TEMP 97.8
== END 2023-12-02 15:00 | disposition home or self-care (01) | DRG 811 ==
LOC: ERS 16:18 → ERHOLD 21:14 → 2NO 11-29 05:31
PROVIDERS: ADMIT Internal Medicine; ATTEND Internal Medicine
PROC: 30233N1 Transfusion of Nonautologous Red Blood Cells into Peripheral Vein, Percutaneous Approach (ICD-10-PCS; principal; 2023-11-28)
DX: D64.9 Anemia, unspecified (principal); L89.153 Pressure ulcer of sacral region, stage 3; N17.9 Acute kidney failure, unspecified; G82.20 Paraplegia, unspecified; Z68.44 Body mass index [BMI] 60.0-69.9, adult; N18.30 Chronic kidney disease, stage 3 unspecified; I12.9 Hypertensive chronic kidney disease with stage 1 through stage 4 chronic kidney disease, or unspecified chronic kidney disease; L89.150 Pressure ulcer of sacral region, unstageable; E66.01 Morbid (severe) obesity due to excess calories; Z79.899 Other long term (current) drug therapy; Z98.51 Tubal ligation status; Z90.49 Acquired absence of other specified parts of digestive tract; Z98.890 Other specified postprocedural states; Z74.01 Bed confinement status
CPT/HCPCS: 36415; 36416; 36430; 36556; 71045; 74178; 80048; 80202; 83605; 85025; 85060; 86141; 86850; 86900; 86901; 87040; 96365; 96366; 96375; 97139; C9113; J0692; J1940; J2270; J2272; J2405; J2543; J3370; J3490; J7050; P9016; Q9967

== ENCOUNTER 2024-02-22 14:06 | Inpatient (IN) | payer MEDICARE, MEDICAID ==
[2024-02-22] MEDS ORDERED: traMADol HCl 50 MG TAB PO PRN (17:59)
[2024-02-22] MEDS ORDERED: Acetaminophen 325 MG TAB PO PRN (18:01)
[2024-02-22] MEDS ORDERED: Ondansetron PF 4 MG/2 ML Vial IVP PRN (18:01)
[2024-02-22] MEDS: Morphine 2 MG/ML VIAL SLOW IVP PRN (18:20)
[2024-02-22] MEDS ORDERED: Vancomycin Dose by Levels Sliding Scale (Wt > 99) FS SCH (19:15)
[2024-02-22] MEDS: Baclofen 10 MG TAB PO SCH (19:46)
[2024-02-22] MEDS: Vancomycin 1 GM in Premix 1 BAG IVPB SCH (19:52)
[2024-02-22] MEDS: Lactated Ringer's 1,000 ML IV SCH (19:53)
[2024-02-22] MEDS: Sodium Bicarb 50 mEq/50 ML VIAL IVP SCH (20:00)
[2024-02-22] MEDS: Pantoprazole DR 40 MG TAB PO SCH (20:32)
[2024-02-22] MEDS: Heparin 5,000 UNITS/ML VIAL SC SCH (20:33)
[2024-02-22] MEDS ORDERED: Vancomycin 1 GM in Premix 1 BAG IVPB SCH (21:00)
[2024-02-22] MEDS: Cefepime 1 GM in Sodium Chloride 0.9% 100 ML IVPB SCH (21:43)
[2024-02-22 22:57] LABS: #Basophils 0.08 10x3/uL (0.0-0.2); #Eosinophils Less than 0.03 10x3/uL (0.0-0.7); %Basophils 0.3 % (0.0-1.0); %Lymphocytes 4.2 % (21.0-51.0); %Monocytes 6.3 % (0.0-10.0); %Neutrophils 88.6 % (42.0-75.0); Hematocrit 31.1 % (36.0-47.0); Mean Corpuscular HGB CONC 28.9 g/dL (32.0-36.0); Mean Corpuscular Volume 86.4 fL (78.0-98.0); Mean Platelet Volume 8.2 fL (7.4-10.4); Platelet Count 388 10x3/uL (130-400); RBC Distribution Width 27.9 % (11.5-14.5)
[2024-02-22 23:17] LABS: ALT (SGPT) 8 U/L (8-55); AST (SGOT) 13 U/L (5-34); Albumin 1.8 g/dL (3.4-4.8); Alkaline Phosphatase 198 U/L (40-110); Anion Gap 18 mmol/L (10-20); BUN (Urea Nitrogen) 45 mg/dL (9.8-20.1); Bilirubin, Total 0.3 mg/dL (0.2-1.2); Calc. Creatinine Clearance 34 mL/min (70-130); Calcium 8.8 mg/dL (7.8-10.44); Carbon Dioxide 9 mmol/L (23-31); Chloride 117 mmol/L (98-107); Estimated GFR 12; Globulin 6.1 g/dL (2.4-3.5); Glucose 122 mg/dL (80-115); Potassium 4.1 mmol/L (3.5-5.1); Protein, Total 7.9 g/dL (5.8-8.1); Sodium 140 mmol/L (136-145)
[2024-02-23] MEDS: Sodium Bicarbonate 100 MEQ in Sodium Chloride 0.45% 1,000 ML IV SCH (00:24)
[2024-02-23] MEDS ORDERED: Atorvastatin Calcium 20 MG TAB PO SCH (09:00)
[2024-02-23 09:30] LABS: Lipase 414 U/L (8-78)
[2024-02-23 10:01] LABS: Albumin 1.8 g/dL (3.4-4.8); Calcium 8.5 mg/dL (7.8-10.44); Chloride 117 mmol/L (98-107); Glucose 128 mg/dL (80-115); Potassium 3.8 mmol/L (3.5-5.1); Protein, Total 7.8 g/dL (5.8-8.1); Sodium 142 mmol/L (136-145)
[2024-02-23 10:02] LABS: ALT (SGPT) 10 U/L (8-55); AST (SGOT) 17 U/L (5-34); Alkaline Phosphatase 179 U/L (40-110); Anion Gap 19 mmol/L (10-20); BUN (Urea Nitrogen) 49 mg/dL (9.8-20.1); Bilirubin, Total 0.3 mg/dL (0.2-1.2); Calc. Creatinine Clearance 30 mL/min (70-130); Carbon Dioxide 10 mmol/L (23-31); Estimated GFR 11
[2024-02-23 10:09] LABS: Hematocrit 26.3 % (36.0-47.0); Hemoglobin 8.2 g/dL (12.0-16.0); Mean Corpuscular HGB CONC 31.2 g/dL (32.0-36.0); Mean Corpuscular Hemoglobin 24.6 pg (27.0-31.0); Mean Platelet Volume 8.8 fL (7.4-10.4); Platelet Count 469 10x3/uL (130-400); RBC Distribution Width 27.3 % (11.5-14.5); Red Blood Cell (RBC) Count 3.33 mill/uL (4.20-5.40)
[2024-02-23 11:34] LABS: Anisocytosis SLIGHT = 6-15 cells HPF (0-5); Hypochromia SLIGHT = 6-15 cells HPF (0-5); Lymphocytes 4 % (21-51); Macrocytosis SLIGHT = 6-15 cells HPF (0-5); Monocytes 7 % (0-10); Neutrophil 89 % (42-75); Nucleated RBC (Manual Ct) 3 % (0); Platelet Adequacy Comment Platelets Increased; Polychromasia SLIGHT = 2-3 cells HPF (0-2); Smudge Cells 2.6 %; Target Cells SLIGHT = 2-5 cells HPF (0-1)
[2024-02-23] MEDS: Acetaminophen/Codeine 30-300mg Tablet PO SCH (11:49)
[2024-02-23] MEDS: Potassium Chloride 20 MEQ TAB PO SCH (11:50)
[2024-02-23] MEDS: NOREPINEPHRINE 8 MG/250 ML-D5W 250 ML ONE (11:50)
[2024-02-23] MEDS: Lactated Ringer's 500 ML IV SCH (11:56)
[2024-02-23] MEDS ORDERED: Sodium Bicarbonate 100 MEQ in Dextrose 5% in Water 1,000 ML IV SCH (14:45)
[2024-02-23] MEDS: Sodium Chloride 0.9% 1,000 ML IV SCH (15:06)
[2024-02-23 16:17] LABS: ALT (SGPT) 9 U/L (8-55); AST (SGOT) 20 U/L (5-34); Albumin 1.7 g/dL (3.4-4.8); Alkaline Phosphatase 179 U/L (40-110); Anion Gap 16 mmol/L (10-20); BUN (Urea Nitrogen) 52 mg/dL (9.8-20.1); Bilirubin, Total 0.3 mg/dL (0.2-1.2); Calc. Creatinine Clearance 28 mL/min (70-130); Calcium 8.1 mg/dL (7.8-10.44); Carbon Dioxide 15 mmol/L (23-31); Chloride 114 mmol/L (98-107); Estimated GFR 10; Globulin 5.5 g/dL (2.4-3.5); Glucose 131 mg/dL (80-115); Potassium 3.9 mmol/L (3.5-5.1); Protein, Total 7.2 g/dL (5.8-8.1); Sodium 141 mmol/L (136-145)
[2024-02-23] MEDS: Vancomycin HCl 750 MG in Sodium Chloride 0.9% 250 ML 250 ML IVPB SCH (20:37)
[2024-02-23] MEDS ORDERED: NOREPINEPHRINE 8 MG/250 ML-D5W 250 ML IVPB SCH (21:15)
[2024-02-24 04:16] LABS: Hematocrit 19.2 % (36.0-47.0); Mean Corpuscular HGB CONC 31.3 g/dL (32.0-36.0); Mean Corpuscular Hemoglobin 24.3 pg (27.0-31.0); Mean Corpuscular Volume 77.7 fL (78.0-98.0); Mean Platelet Volume 8.9 fL (7.4-10.4); Platelet Count 414 10x3/uL (130-400); RBC Distribution Width 26.7 % (11.5-14.5); Red Blood Cell (RBC) Count 2.47 mill/uL (4.20-5.40)
[2024-02-24 04:37] LABS: ALT (SGPT) 10 U/L (8-55); AST (SGOT) 21 U/L (5-34); Albumin 1.7 g/dL (3.4-4.8); Alkaline Phosphatase 177 U/L (40-110); Anion Gap 17 mmol/L (10-20); BUN (Urea Nitrogen) 54 mg/dL (9.8-20.1); Bilirubin, Total 0.3 mg/dL (0.2-1.2); Calc. Creatinine Clearance 26 mL/min (70-130); Calcium 7.8 mg/dL (7.8-10.44); Carbon Dioxide 14 mmol/L (23-31); Chloride 116 mmol/L (98-107); Estimated GFR 9; Globulin 5.4 g/dL (2.4-3.5); Glucose 132 mg/dL (80-115); Potassium 3.7 mmol/L (3.5-5.1); Protein, Total 7.1 g/dL (5.8-8.1); Sodium 143 mmol/L (136-145)
[2024-02-24 05:10] LABS: Anisocytosis SLIGHT = 6-15 cells HPF (0-5); Band 6 % (5-11); Hypochromia SLIGHT = 6-15 cells HPF (0-5); Lymphocytes 4 % (21-51); Microcytosis MODERATE=15-30 cells HPF (0-5); Monocytes 4 % (0-10); Neutrophil 85 % (42-75); Nucleated RBC (Manual Ct) 2 % (0); Platelet Adequacy Comment Platelets Decreased; Polychromasia SLIGHT = 2-3 cells HPF (0-2); Schistocytes SLIGHT = 2-5 cells HPF (0-1); Target Cells MODERATE= 6-15 cells HPF (0-1); Tear Drops SLIGHT = 2-5 cells HPF (0-1)
[2024-02-24] MEDS: Sodium Bicarbonate 100 MEQ in Sodium Chloride 0.45% 1,000 ML IV SCH (11:28)
[2024-02-24] MEDS: Morphine 4 MG/ML VIAL SLOW IVP PRN (15:41)
[2024-02-24 16:09] VITALS: BMI 56.7
[2024-02-24] MEDS: Morphine 2 MG/ML VIAL SLOW IVP PRN (22:00)
[2024-02-24] MEDS: Lorazepam 2 MG/ML VIAL SLOW IVP SCH (23:30)
[2024-02-25] MEDS: Scopolamine 1 mg/72 hour Patch TD SCH (20:05)
[2024-02-25] MEDS: Lorazepam 2 MG/ML VIAL SLOW IVP PRN (20:06)
[2024-02-26 07:54] VITALS: BP 111/76; TEMP 97.7
[2024-02-26] MEDS ORDERED: Scopolamine 1 mg/72 hour Patch TD SCH (12:00)
== END 2024-02-26 11:43 | disposition hospice, inpatient (51) | DRG 871 ==
LOC: MSONC 16:17 → CCU 02-23 10:22 → T4-A 02-24 20:01
PROVIDERS: ADMIT Internal Medicine; ATTEND Internal Medicine
PROC: 3E03329 Introduction of Other Anti-infective into Peripheral Vein, Percutaneous Approach (ICD-10-PCS; 2024-02-22)
PROC: 3E033XZ Introduction of Vasopressor into Peripheral Vein, Percutaneous Approach (ICD-10-PCS; 2024-02-22)
PROC: 02HV33Z Insertion of Infusion Device into Superior Vena Cava, Percutaneous Approach (ICD-10-PCS; principal; 2024-02-23)
PROC: 30233N1 Transfusion of Nonautologous Red Blood Cells into Peripheral Vein, Percutaneous Approach (ICD-10-PCS; 2024-02-24)
DX: A41.9 Sepsis, unspecified organism (principal); G82.50 Quadriplegia, unspecified; R65.21 Severe sepsis with septic shock; G93.41 Metabolic encephalopathy; N17.0 Acute kidney failure with tubular necrosis; K85.90 Acute pancreatitis without necrosis or infection, unspecified; T83.511A Infection and inflammatory reaction due to indwelling urethral catheter, initial encounter; G82.20 Paraplegia, unspecified; Z68.43 Body mass index [BMI] 50.0-59.9, adult; E87.21 Acute metabolic acidosis; D68.9 Coagulation defect, unspecified; N39.0 Urinary tract infection, site not specified; N18.30 Chronic kidney disease, stage 3 unspecified; D63.1 Anemia in chronic kidney disease; L89.159 Pressure ulcer of sacral region, unspecified stage; Z66 Do not resuscitate; E66.01 Morbid (severe) obesity due to excess calories; Z74.01 Bed confinement status; Z88.8 Allergy status to other drugs, medicaments and biological substances; Z98.890 Other specified postprocedural states; Z90.49 Acquired absence of other specified parts of digestive tract; Z83.3 Family history of diabetes mellitus
CPT/HCPCS: 36415; 36430; 71045; 80053; 80202; 83690; 85025; 86850; 86900; 86901; 87040; 97139; J0692; J1644; J2060; J2272; J3370; J3370-JW; J7030; J7050; J7120; P9016

== ENCOUNTER 2024-02-26 12:46 | Inpatient (IN) | payer OTHER ==
[2024-02-26] MEDS ORDERED: Morphine 2 MG/ML VIAL SLOW IVP PRN (13:24)
[2024-02-26] MEDS ORDERED: Bisacodyl 10 MG SUPP PR PRN (13:25)
[2024-02-26] MEDS: Morphine 4 MG/ML VIAL SLOW IVP SCH (15:00)
[2024-02-26] MEDS: Lorazepam 2 MG/ML VIAL SLOW IVP SCH (15:13)
[2024-02-26] MEDS: Scopolamine 1 mg/72 hour Patch TOP SCH (16:34)
[2024-02-26 20:07] VITALS: TEMP 97.6
[2024-02-28 07:32] VITALS: BP 123/68
== END 2024-02-28 14:45 | disposition expired | DRG 951 ==
LOC: T4-A 12:46
PROVIDERS: ADMIT Internal Medicine Nephrology; ATTEND Internal Medicine Nephrology
DX: Z51.5 Encounter for palliative care (principal); A41.9 Sepsis, unspecified organism; R65.21 Severe sepsis with septic shock; G82.20 Paraplegia, unspecified; N39.0 Urinary tract infection, site not specified; N17.9 Acute kidney failure, unspecified; D64.9 Anemia, unspecified; D75.839 Thrombocytosis, unspecified; Z79.899 Other long term (current) drug therapy
CPT/HCPCS: J2060; J2272